=== PATIENT | male | born 1950 | race Caucasian/White ===

== ENCOUNTER → 2017-05-22 | Outpatient (CLI) | payer OTHER ==
[~2017-05-22] MED LIST: ADVAIR 5001 DISK W/1 IH; ADVAIR 5001 DISK W/2 IH; ALB/IPRATROPIUM/1 E1 INH; ALBUTEROL17 GM; ALBUTEROL17 GM INH; ALDACTAZIDE PO; ALL DAY ALLERGY10 M2 PO; ALLERGY RELIEF10 M6 PO; ALVESCO6.1 G1 INH; AMOXICILLIN875 MG PO; AZITHROMYCIN250 MG PO; BENZONATATE200 M1 PO; CLARITIN10 M3 PO; CLEOCIN PO; DOXYCYCLINE HY100 M3 PO; DOXYCYCLINE HY100 M4 PO; FLEXERIL PO; FLEXERIL10 MG PO; FLOVENT DI50 MCG/DIS IH; GUAIFENESIN600 M1 PO; HCTZ PO; HYCODAN60 ML 5MG/ PO; HYDROCHLOROTHIA25 MG PO; HYDROCODON-ACE1 EAC7 PO; IBUPROFEN PO; IPRATR-ALBUTEROL3 ML IH; LEVAQUIN PO; LEVAQUIN750 MG PO; LEVOFLOXACIN750 MG PO; LISINOPRIL10 MG PO; LORTAB 5/500 TA1 TA1 PO; MUCINEX SINUS-1 EAC3 PO; MUCINEX100 MG/BOX PO; NASONEB NASAL1 EACH MC; NEXIUM PO; OXYGEN INH; PREDNISONE PO; PREDNISONE10 MG PO; PREDNISONE10 MG/DOSE PO; PULMICORT90 MCG/AER IH; ROBITUSSIN A-C-S1 ML PO; TAMIFLU75 M1 PO; TESSALON PERLE100 M1 PO; VIBRAMYCIN100 M1 PO; XOPENEX HFA15 GM NEB; ZYRTEC10 M2 PO; [UNRECOGNIZED DRUG - OTHER] INH
--- NOTE | ~2017-05-22 | CT113 ---
[facility] A Service of [facility] RADIOLOGY TEXT RESULTS PATIENT: EDU THEODORE JR LOCATION: [facility] : 50 UNIT #: [id number] AGE: [address]: Sean Capone MD SEX: M ORDER DR: [id number] [place], [place] [address] [id number] O MR#: [id number] Acc #: [id number] NAME: EDU THEODORE : 1950 SEX: M STUDY DATE/TIME: 05/22/2017 15:06 UNIT: [facility]AT ROOM: STUDY DESCRIPTION: CT Sinuses Wo Contrast Attending Physician: Sean Capone M.D. Referring Physician: Sean Capone M.D. Ordering Physician: Physician Non-Staff Primary Care Physician: Mikaela Kramer M.D. MEDICAL IMAGING REPORT This report is preliminary unless electronic signature is present EXAM Sinus CT, no contrast. PROCEDURE Axial unenhanced sinus CT with multiplanar reformats. This CT exam was performed with one or more of the following radiation dose reduction techniques: automatic exposure control, adjustment of mA and/or kV according to patient size, and iterative reconstruction. COMPARISON None. CLINICAL HISTORY Two-year history of chronic sinus drainage. FINDINGS The frontal sinuses are normally pneumatized. There is slight anterior-inferior left frontal mucosal thickening, but they are otherwise normally aerated. There is a single opacified right posterior ethmoid air cell, but the ethmoid air cells are otherwise normally pneumatized and aerated. The maxillary sinuses are normally pneumatized and aerated and the infundibula are patent bilaterally. The sphenoid chambers are codominant and normally pneumatized and aerated. There is rightward nasal septal deviation. The adjacent soft tissue structures are normal both intra and extracranially. IMPRESSION [facility] A Service of [facility] RADIOLOGY TEXT RESULTS PATIENT: EDU THEODORE JR LOCATION: [facility] : 50 UNIT #: [id number] AGE: [address]: Sean Capone MD SEX: M ORDER DR: Rightward septal deviation, single opacified right posterior ethmoid air cell, and left frontal anterior-inferior mucosal thickening. Otherwise no CT evidence of currently active sinus inflammatory disease. Dictated by... Edu Downing M.D. THIS IS AN ELECTRONICALLY VERIFIED REPORT Edu Downing M.D. at 05/24/2017 2:07 PM TEV/pc TD: 05/23/2017 13:46 JOB #: [id number] MEDICAL IMAGING REPORT Page 1 of 1 COPY
== END | disposition home or self-care (01) ==
LOC: CCAT 14:34
DX: J32.9 Chronic sinusitis, unspecified (principal); J34.2 Deviated nasal septum; J34.89 Other specified disorders of nose and nasal sinuses
CPT/HCPCS: 70486